=== PATIENT | female | born 1985 | race Caucasian/White ===

== ENCOUNTER 2018-02-11 13:20 | Inpatient (IN) | payer OTHER ==
[~2018-02-11] VITALS: Ht 165.1 cm; Wt 106.8 kg
[2018-02-11] MEDS ORDERED: OXYTOCIN 30U/ 0.9% NaCL 500ML 500 ML IV ONE (20:13)
[2018-02-11] MEDS: D5%-LACTATED RINGERS 1,000 ML IV SCH (20:13)
[2018-02-11] MEDS ORDERED: OXYTOCIN 30U/ 0.9% NaCL 500ML 500 ML IV PRN (20:13)
[2018-02-11 20:19] VITALS: BP 128/58
[2018-02-11] MEDS ORDERED: FENTANYL PF 100 MCG/2ML IV PRN (20:30)
[2018-02-11] MEDS ORDERED: PENICILLIN GK 5,000,000 UNITS in SODIUM CHLORIDE 0.9% 100 ML IVPB ONE (20:30)
[2018-02-11] MEDS ORDERED: MISOPROSTOL 25 MCG TABLET VG PRN (20:30)
[2018-02-11] MEDS ORDERED: CALCIUM CARBONATE 500 MG TAB.CHEW PO PRN (20:30)
[2018-02-11] MEDS ORDERED: ONDANSETRON 2MG/ML, 2ML IVPush PRN (20:30)
[2018-02-11] MEDS ORDERED: TERBUTALINE 1 MG/ML, 1ML IVPush PRN (20:30)
[2018-02-11 20:43] LABS: BASOPHILS # (AUTO) 0.03 x10^3/uL (0-0.1); BASOPHILS % (AUTO) 0 % (0-1); EOSINOPHILS # (AUTO) 0.04 x10^3/uL (0-0.4); EOSINOPHILS % (AUTO) 0 % (1-7); LYMPHOCYTES # (AUTO) 1.73 x10^3/uL (1-3.4); LYMPHOCYTES % (AUTO) 20 % (22-44); MD NO; MEAN CORPUSCULAR HEMOGLOBIN 27.8 pg (27.0-34.8); MEAN CORPUSCULAR HGB CONC 33.4 g/dL (32.4-35.8); MEAN CORPUSCULAR VOLUME 83.4 fL (80-100); MEAN PLATELET VOLUME 12.1 fL (7.4-10.4); MONOCYTES # (AUTO) 0.77 x10^3/uL (0.2-0.8); MONOCYTES % (AUTO) 9 % (2-9); NEUTROPHILS # (AUTO) 6.26 x10^3/uL (1.8-6.8); NEUTROPHILS % (AUTO) 71 % (42-75); PLATELET COUNT 178 x10^3/uL (130-400); RED BLOOD COUNT 3.89 x10^6/uL (3.82-5.3); RED CELL DISTRIBUTION WIDTH 14.2 % (9.6-15.2)
[2018-02-11] MEDS ORDERED: MISOPROSTOL 200 MCG TABLET ONE (20:56)
[2018-02-11] MEDS ORDERED: OXYTOCIN 30U/ 0.9% NaCL 500ML 500 ML ONE (20:56)
[2018-02-11] MEDS ORDERED: LIDOCAINE/PF 1%, 30ML ONE (20:56)
[2018-02-11] MEDS ORDERED: MISOPROSTOL 25 MCG TABLET ONE (20:56)
[2018-02-11] MEDS: LACTATED RINGERS 1,000 ML IV SCH (21:06)
[2018-02-12] MEDS ORDERED: FENTANYL/BUPIV./NS/PF 250 ML EPIDCONT SCH ×2 (00:42→10:54)
[2018-02-12] MEDS ORDERED: LACTATED RINGERS 1,000 ML IVBOLUS PRN ×2 (01:00→11:00)
[2018-02-12] MEDS ORDERED: TERBUTALINE 1 MG/ML, 1ML ONE (01:02)
[2018-02-12] MEDS ORDERED: NEWBORN KIT ONE (01:17)
[2018-02-12] MEDS: PENICILLIN GK 2,500,000 UNITS in DEXTROSE 5% 100 ML IVPB SCH ×3 (01:19→09:49)
[2018-02-12] MEDS: LACTATED RINGERS 1,000 ML IV SCH (01:19)
[2018-02-12] MEDS ORDERED: FENTANYL PF 100 MCG/2ML ONE ×4 (03:36→11:29)
[2018-02-12] MEDS: FENTANYL PF 100 MCG/2ML IVPush PRN ×3 (03:43→10:31)
[2018-02-12] MEDS: D5%-LACTATED RINGERS 1,000 ML IV SCH (04:13)
[2018-02-12] MEDS ORDERED: LACTATED RINGERS 1,000 ML IV SCH (10:54)
[2018-02-12] MEDS ORDERED: NALOXONE 0.4 MG/ML, 1ML IVPush PRN (11:00)
[2018-02-12] MEDS ORDERED: EPHEDRINE 50 MG/ML, 1ML IVPush PRN (11:00)
[2018-02-12] MEDS ORDERED: FENTANYL PF 500 MCG, BUPIVACAINE/PF 0.5%, 30ML 62.5 ML in SODIUM CHLORIDE 0.9% 177.5 ML EPIDCONT SCH (12:00)
[2018-02-12] MEDS: OXYTOCIN 30U/ 0.9% NaCL 500ML 500 ML IV SCH ×5 (15:31→19:49)
[2018-02-12] MEDS ORDERED: BISACODYL 10 MG SUPP PR PRN (16:00)
[2018-02-12] MEDS ORDERED: HYDROcodone/APAP 5/325 TABLET PO PRN ×2 (16:00)
[2018-02-12] MEDS ORDERED: MISOPROSTOL 200 MCG TABLET PR PRN (16:00)
[2018-02-12] MEDS ORDERED: ONDANSETRON 2MG/ML, 2ML IV PRN (16:00)
[2018-02-12] MEDS ORDERED: ACETAMINOPHEN 325 MG TABLET PO PRN ×2 (16:00)
[2018-02-12] MEDS ORDERED: CALCIUM CARBONATE 500 MG TAB.CHEW PO PRN (16:00)
[2018-02-12 17:10] VITALS: BP 116/71
[2018-02-12] MEDS: IBUPROFEN 600 MG TABLET PO PRN (18:14)
[2018-02-12 19:15] VITALS: BP 111/65
[2018-02-13 00:15] VITALS: BP 112/64
[2018-02-13] MEDS: OXYTOCIN 30U/ 0.9% NaCL 500ML 500 ML IV SCH ×3 (01:31→21:31)
[2018-02-13] MEDS: IBUPROFEN 600 MG TABLET PO PRN ×4 (03:41→23:04)
[2018-02-13 04:00] VITALS: BP 106/70
[2018-02-13 05:39] LABS: MEAN CORPUSCULAR HEMOGLOBIN 28.9 pg (27.0-34.8); PLATELET COUNT 128 x10^3/uL (130-400); RED BLOOD COUNT 3.43 x10^6/uL (3.82-5.3); RED CELL DISTRIBUTION WIDTH 14.8 % (9.6-15.2)
[2018-02-13 06:02] LABS: BASOPHILS # (AUTO) 0.02 x10^3/uL (0-0.1); BASOPHILS % (AUTO) 0 % (0-1); EOSINOPHILS # (AUTO) 0.03 x10^3/uL (0-0.4); EOSINOPHILS % (AUTO) 0 % (1-7); LYMPHOCYTES # (AUTO) 1.28 x10^3/uL (1-3.4); LYMPHOCYTES % (AUTO) 16 % (22-44); MD SCAN; MONOCYTES # (AUTO) 0.65 x10^3/uL (0.2-0.8); MONOCYTES % (AUTO) 8 % (2-9); NEUTROPHILS # (AUTO) 6.03 x10^3/uL (1.8-6.8); NEUTROPHILS % (AUTO) 75 % (42-75)
[2018-02-13] MEDS: DOCUSATE 100 MG CAPSULE PO PRN ×2 (07:40→23:04)
[2018-02-13] MEDS: PRENATAL VIT/IRON/FA 1 EACH TABLET PO SCH (07:40)
[2018-02-13 08:00] VITALS: BP 117/67
[2018-02-13] MEDS: FERROUS GLUCONATE 324 MG TABLET PO SCH ×2 (12:00→17:01)
[2018-02-13 12:22] VITALS: BP 103/67
[2018-02-13 19:20] VITALS: BP 114/74
[2018-02-14] MEDS ORDERED: IBUP-1222 PO (05:06)
[2018-02-14] MEDS ORDERED: DOCU-131 PO (05:09)
[2018-02-14] MEDS ORDERED: FERR240T PO (05:13)
[2018-02-14] MEDS: IBUPROFEN 600 MG TABLET PO PRN ×2 (05:56→12:01)
[2018-02-14] MEDS: DOCUSATE 100 MG CAPSULE PO PRN (08:01)
[2018-02-14] MEDS: FERROUS GLUCONATE 324 MG TABLET PO SCH (08:01)
[2018-02-14] MEDS: PRENATAL VIT/IRON/FA 1 EACH TABLET PO SCH (08:01)
[2018-02-14 08:03] VITALS: BP 109/71
== END 2018-02-14 13:15 | disposition home or self-care (01) | DRG 775 ==
LOC: LDIP 20:08 → 2NW 02-12 17:02
PROVIDERS: ADMIT Obstetrics & Gynecology Gynecology; ATTEND Obstetrics & Gynecology Gynecology
PROC: 10E0XZZ Delivery of Products of Conception, External Approach (ICD-10-PCS; principal; 2018-02-12)
PROC: 3E0R3BZ Introduction of Anesthetic Agent into Spinal Canal, Percutaneous Approach (ICD-10-PCS; 2018-02-12)
PROC: 00HU33Z Insertion of Infusion Device into Spinal Canal, Percutaneous Approach (ICD-10-PCS; 2018-02-12)
PROC: 10907ZC Drainage of Amniotic Fluid, Therapeutic from Products of Conception, Via Natural or Artificial Opening (ICD-10-PCS; 2018-02-12)
PROC: 3E033VJ Introduction of Other Hormone into Peripheral Vein, Percutaneous Approach (ICD-10-PCS; 2018-02-12)
DX: O69.1XX0 Labor and delivery complicated by cord around neck, with compression, not applicable or unspecified (principal); E66.9 Obesity, unspecified; O76 Abnormality in fetal heart rate and rhythm complicating labor and delivery; O99.214 Obesity complicating childbirth; O99.824 Streptococcus B carrier state complicating childbirth; Z37.0 Single live birth; Z3A.39 39 weeks gestation of pregnancy; Z80.41 Family history of malignant neoplasm of ovary; Z82.3 Family history of stroke; Z82.49 Family history of ischemic heart disease and other diseases of the circulatory system; Z83.3 Family history of diabetes mellitus; O70.9 Perineal laceration during delivery, unspecified; Z68.39 Body mass index [BMI] 39.0-39.9, adult
CPT/HCPCS: 36415; 82803; 85025; 86850; 86900; G0378; J2540; J3010; J7120